=== PATIENT | male | born 1960 | race Caucasian/White ===

== ENCOUNTER 2017-04-18 17:21 | Emergency (ER) | payer OTHER ==
[~2017-04-18] VITALS: Ht 170.2 cm; Wt 67.0 kg
[~2017-04-18 17:21] MED LIST: NOHOMEMEDS
[2017-04-18] MEDS ORDERED: NAPROXEN500 MG PO (19:09)
[2017-04-18 19:18] VITALS: BP 135/69
== END 2017-04-18 19:20 | disposition home or self-care (01) ==
LOC: EME 17:21 → EXP 17:21
DX: M25.562 Pain in left knee (principal); I10 Essential (primary) hypertension; E03.9 Hypothyroidism, unspecified; F17.200 Nicotine dependence, unspecified, uncomplicated
CPT/HCPCS: 73564; 93971; 99281; 99284